=== PATIENT | female | born 1950 | race Caucasian/White ===

== ENCOUNTER 2020-05-26 13:43 | Emergency (ER) | payer MEDICARE, OTHER ==
[~2020-05-26] VITALS: Ht 149.8 cm; Wt 71.7 kg
[2020-05-26] MEDS ORDERED: NS IV 1000 ML 0 ML ONE (14:41)
[2020-05-26] MEDS ORDERED: ACETAMINOPHEN 500 MG TAB (TYLENOL) ONE (14:42)
--- NOTE | 2020-05-26 16:45 | NUR ---
Note chris in EDM - 05/26/20 at 1651 by SARA PT NOT IN ROOM. PT GOT UP ON HIS OWN AND WENT TO THE BATHROOM. ASSISTED PT BACK TO BED ET PULSE OX IN THE 'S. PT NOT WANTING TO LEAVE NON REBREATHER ON. DR TOMAS BROUGHT INTO ROOM.
[2020-05-26] MEDS ORDERED: LACTATED RINGERS 1,000 ML IV ONE (17:28)
[2020-05-26 17:34] LABS: BASOPHILS % (AUTO) 0 % (0-10); EOSINOPHILS # (AUTO) 0.1 10^3/uL (0.0-0.3); EOSINOPHILS % (AUTO) 0 % (0-10); HEMATOCRIT 43 % (35-52); LYMPHOCYTES # (AUTO) 1.3 10^3/uL (1.0-4.0); LYMPHOCYTES % (AUTO) 10 % (12-44); MEAN CORPUSCULAR HEMOGLOBIN 31 pg (25-34); MEAN CORPUSCULAR HGB CONC 33 g/dL (32-36); MEAN CORPUSCULAR VOLUME 93 fL (80-99); MEAN PLATELET VOLUME 10.6 fL (9.0-12.2); MONOCYTES # (AUTO) 0.4 10^3/uL (0.0-1.0); MONOCYTES % (AUTO) 3 % (0-12); NEUTROPHILS # (AUTO) 10.9 10^3/uL (1.8-7.8); NEUTROPHILS % (AUTO) 86 % (42-75); PLATELET COUNT 322 10^3/uL (130-400); WHITE BLOOD COUNT 12.7 10^3/uL (4.3-11.0)
[2020-05-26 17:40] LABS: ALBUMIN 4.1 GM/DL (3.2-4.5); CHLORIDE 109 MMOL/L (98-107); POTASSIUM 3.8 MMOL/L (3.6-5.0); SODIUM 140 MMOL/L (135-145)
[2020-05-26 17:42] LABS: CALCIUM 8.3 MG/DL (8.5-10.1)
[2020-05-26 17:43] LABS: GLUCOSE 104 MG/DL (70-105); TOTAL PROTEIN 6.6 GM/DL (6.4-8.2)
[2020-05-26 17:44] LABS: CARBON DIOXIDE 20 MMOL/L (21-32)
[2020-05-26 17:45] LABS: BILIRUBIN,TOTAL 0.6 MG/DL (0.1-1.0)
[2020-05-26 17:46] LABS: ALKALINE PHOSPHATASE 54 U/L (40-136)
[2020-05-26 17:47] LABS: CREATININE SERUM 0.71 MG/DL (0.60-1.30); GFR ESTIMATED > 60
[2020-05-26 17:48] LABS: BUN/CREATININE RATIO 23
[2020-05-26 17:49] LABS: ALANINE AMINOTRANSFERASE 31 U/L (0-55)
--- NOTE | 2020-05-26 18:15 | ED General ---
General Chief Complaint: Cough/Cold/Flu Symptoms Stated Complaint: N/V,DIARRHEA,COUGH, LG FEVER Nursing Triage Note: PT REPORTS COUGH THAT STARTED ON THRUSDAY BUT HAS GOTTEN BETTER. PT REPORTS VOMITING SINCE 1000 AND UNABLE TO KEEP ANYTHING DOWN. PT REPORTS DIARRHEA, CHILS, AND BEING DIZZY. PT DENIES BODY ACHES OR HEADACHES. PT ARRIVED LAST NIGHT VIA PLANE FROM [place] WHERE SHE LIVES. PT IS HERE VISITING DAUGHTER. Nursing Sepsis Screen: No Definite Risk Source of Information: Patient Exam Limitations: No Limitations History of Present Illness Date Seen by Provider: May 26, 2020 Time Seen by Provider: 17:20 Initial Comments Here with report of rather significant nausea and vomiting today starting at 10 AM. She was very dizzy and felt chills and body aches. She traveled from [place] to here yesterday via flight through [place]. Here to stay with her daughter who is a nurse in our facility. Denies upper respiratory symptoms but daughter reports that she has had a mild cough. States that she has not felt like this before except for when she had the flu. Denies chest pain or breathing problems. Does report that she feels weak but overall feels better this afternoon. Timing/Duration: 12-24 Hours Severity: Moderate Associated Systoms: Cough, Fever/Chills, Nausea/Vomiting; No Shortness of Air; Weakness Allergies and Home Medications Allergies Coded Allergies: hydrocodone (Unverified Allergy, Mild, Vomiting, 05/26/20) HTN Patient Home Medication List Home Medication List Reviewed: Yes Review of Systems Review of Systems Constitutional: see HPI, chills; No diaphoresis EENTM: no symptoms reported Respiratory: cough; No short of breath Cardiovascular: no symptoms reported Gastrointestinal: No abdominal pain; diarrhea, nausea, vomiting Genitourinary: no symptoms reported Musculoskeletal: No back pain, No neck pain Skin: no symptoms reported Psychiatric/Neurological: No Symptoms Reported All Other Systems Reviewed Negative Unless Noted: Yes Past Hekhzsk-Gasmuc-Kejzmn Hx Past Med/Social Hx: Reviewed Nursing Past Med/Soc Hx Patient Social History Alcohol Use: Rarely Uses Alcohol Beverage of Choice: Beer Recreational Drug Use: No Smoking Status: Never a Smoker Recent Foreign Travel: No Contact w/Someone Who Travel: No Recent Infectious Disease Expo: No Recent Hopitalizations: No Physical Abuse: No Sexual Abuse: No Mistreated: No Seasonal Allergies Seasonal Allergies: No Past Medical History Surgeries: Yes Bladder Surgery, Hysterectomy, Orthopedic Respiratory: No Neurological: No 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 oz. kg; 31.00 BMI Method: General Appearance: No Apparent Distress, WD/WN HEENT: PERRL/EOMI, Pharynx Normal Neck: Non Tender, Supple Respiratory: Lungs Clear, Normal Breath Sounds Cardiovascular: Regular Rate, Rhythm, No Murmur Gastrointestinal: Non Tender, Soft Back: Normal Inspection, No CVA Tenderness, No Vertebral Tenderness Extremity: Normal Range of Motion, Non Tender Neurologic/Psychiatric: Alert, Oriented x3 Skin: Normal Color, Warm/Dry Progress/Results/Core Measures Suspected Sepsis Recent Fever Within 48 Hours: No Infection Criteria Present: Suspected New Infection New/Unexplained Altered Menta: No Sepsis Screen: No Definite Risk SIRS Temperature: Pulse: 66 Respiratory Rate: 14 Laboratory Tests 05/26/20 17:13: White Blood Count 12.7H Blood Pressure 153 /67 Mean: 95 Laboratory Tests 05/26/20 17:13: Creatinine 0.71, Platelet Count 322, Total Bilirubin 0.6 Results/Orders Lab Results Laboratory Tests Test 05/26/20 17:13 05/26/20 17:21 05/26/20 18:20 Range/Units White Blood Count 12.7 H 4.3-11.0 10^3/uL Red Blood Count 4.58 3.80-5.11 10^6/uL Hemoglobin 14.0 11.5-16.0 g/dL Hematocrit 43 35-52 % Mean Corpuscular Volume 93 80-99 fL Mean Corpuscular Hemoglobin 31 25-34 pg Mean Corpuscular Hemoglobin Concent 33 32-36 g/dL Red Cell Distribution Width 13.3 10.0-14.5 % Platelet Count 322 130-400 10^3/uL Mean Platelet Volume 10.6 9.0-12.2 fL Immature Granulocyte % (Auto) 0 % Neutrophils (%) (Auto) 86 H 42-75 % Lymphocytes (%) (Auto) 10 L 12-44 % Monocytes (%) (Auto) 3 0-12 % Eosinophils (%) (Auto) 0 0-10 % Basophils (%) (Auto) 0 0-10 % Neutrophils # (Auto) 10.9 H 1.8-7.8 10^3/uL Lymphocytes # (Auto) 1.3 1.0-4.0 10^3/uL Monocytes # (Auto) 0.4 0.0-1.0 10^3/uL Eosinophils # (Auto) 0.1 0.0-0.3 10^3/uL Basophils # (Auto) 0.0 0.0-0.1 10^3/uL Immature Granulocyte # (Auto) 0.0 0.0-0.1 10^3/uL Sodium Level 140 135-145 MMOL/L Potassium Level 3.8 3.6-5.0 MMOL/L Chloride Level 109 H 98-107 MMOL/L Carbon Dioxide Level 20 L 21-32 MMOL/L Anion Gap 11 5-14 MMOL/L Blood Urea Nitrogen 16 7-18 MG/DL Creatinine 0.71 0.60-1.30 MG/DL Estimat Glomerular Filtration Rate > 60 BUN/Creatinine Ratio 23 Glucose Level 104 70-105 MG/DL Calcium Level 8.3 L 8.5-10.1 MG/DL Corrected Calcium 8.2 L 8.5-10.1 MG/DL Total Bilirubin 0.6 0.1-1.0 MG/DL Aspartate Amino Transf (AST/SGOT) 24 5-34 U/L Alanine Aminotransferase (ALT/SGPT) 31 0-55 U/L Alkaline Phosphatase 54 40-136 U/L C-Reactive Protein High Sensitivity 0.10 0.00-0.50 MG/DL Total Protein 6.6 6.4-8.2 GM/DL Albumin 4.1 3.2-4.5 GM/DL Urine Color YELLOW Urine Clarity CLEAR Urine pH 5.5 5-9 Urine Specific [place] 1.020 1.016-1.022 Urine Protein NEGATIVE NEGATIVE Urine Glucose (UA) NEGATIVE NEGATIVE Urine Ketones NEGATIVE NEGATIVE Urine Nitrite NEGATIVE NEGATIVE Urine Bilirubin NEGATIVE NEGATIVE Urine Urobilinogen 0.2 < = 1.0 MG/DL Urine Leukocyte Esterase NEGATIVE NEGATIVE Urine RBC (Auto) NEGATIVE NEGATIVE Urine RBC NONE /HPF Urine WBC NONE /HPF Urine Squamous Epithelial Cells 2-5 /HPF Urine Crystals NONE /LPF Urine Bacteria NEGATIVE /HPF Urine Casts NONE /LPF Urine Mucus NEGATIVE /LPF Urine Culture Indicated NO Micro Results Microbiology 05/26/20 Influenza Types A,B Antigen ([facility]ER[facility]) - Final, Complete My Orders Orders - DOUG TOMAS MD Iv 1000 Ml (Sodium Chloride 0.9%) (05/26/20 14:41) Acetaminophen Tablet (Tylenol Tablet) (05/26/20 14:42) Ed Iv/Invasive Line Start (05/26/20 17:28) Lactated Ringers (Lr 1000 Ml Iv Solution (05/26/20 17:28) Cbc With Automated Diff (05/26/20 17:28) Comprehensive Metabolic Panel (05/26/20 17:28) Hs C Reactive Protein (05/26/20 17:28) Ua Culture If Indicated (05/26/20 17:28) Coronavirus Sars-Cov-2 So 2018 (05/26/20 17:42) Influenza A And B Antigens (05/26/20 17:46) Medications Given in ED Current Medications Medications Dose Ordered Sig/Ovi Route Start Time Stop Time Status Last Admin Dose Admin Lactated Ringer's 1,000 ml @ 0 mls/hr Q0M ONCE IV 05/26/20 17:28 05/26/20 17:29 DC 05/26/20 17:40 999 MLS/HR Vital Signs/I&O 05/26/20 05/26/20 15:45 15:45 Temp 36.6 Pulse 66 Resp 14 B/P (MAP) 153/67 (95) Pulse Ox 96 O2 Delivery Room Air Room Air Capillary Refill : Less Than 3 Seconds Blood Pressure Mean: 95 Progress Note : Progress Note Seen and evaluated. IV, labs, UA, COVID-19 screening, influenza screening and LR 1 L bolus ordered. Monitor patient. 07/12/2001: Patient still feeling a little better. Influenza B positive. UA negative. We will initiate outpatient Tamiflu and prescription sent. Findings discussed with patient and family. Discharged home with return precautions. Patient and family verbalized understanding of instructions and agreement with plan. Departure Impression Primary Impression: Influenza B Additional Impression: Person under investigation for COVID-19 Disposition: 01 HOME, SELF-CARE Condition: Stable Departure-Patient Inst. Decision time for Depature: 19:03 Referrals: NO,LOCAL PHYSICIAN (PCP/Family) Primary Care Physician Patient Instructions: Coronavirus Disease 2019 (COVID-19) (DC), Flu, Adult (DC) Add. Discharge Instructions: All discharge instructions reviewed with patient and/or family. Voiced understanding. Take medications as directed. Follow-up with your doctor in a few days for rec heck. Drink plenty of fluids and get plenty of rest. You will need to remain isolated until test results are noted. If they are negative, you will need remain isolated for 3 days after symptoms resolve. If they are positive, the health department will call you and direct quarantine/isolation timeframe. You may take ibuprofen 600 mg every 8 hours as needed for fever or pain. You may take Tylenol/acetaminophen 1000 mg every 8 hours as needed for fever or pain. Return for worse pain, fever, vomiting, weakness, breathing problems or other concerns as needed. Scripts Oseltamivir Phosphate (Oseltamivir Phosphate) 75 Mg Capsule 75 MG PO BID for 5 Days, #10 CAP 0 Refills Prov: DOUG TOMAS MD 05/26/20 Ondansetron (Ondansetron Odt) 4 Mg Tab.rapdis 4 MG PO Q6H PRN for NAUSEA/VOMITING, #12 TAB 0 Refills Prov: DOUG TOMAS MD 05/26/20 DOUG TOMAS MD May 26, 2020 18:15
[2020-05-26 18:30] LABS: BILIRUBIN,URINE NEGATIVE (NEGATIVE); CLARITY,URINE CLEAR; COLOR,URINE YELLOW; GLUCOSE, URINE (UA) NEGATIVE (NEGATIVE); KETONES,URINE NEGATIVE (NEGATIVE); LEUKOCYTE ESTERASE ,URINE NEGATIVE (NEGATIVE); NITRITE,URINE NEGATIVE (NEGATIVE); PH,URINE 5.5 (5-9); PROTEIN,URINE NEGATIVE (NEGATIVE)
[2020-05-26 18:38] LABS: BACTERIA,URINE NEGATIVE /HPF
[2020-05-26] MEDS ORDERED: OSEL75CA15 PO ×2 (19:05→19:26)
[2020-05-26] MEDS ORDERED: ONDA4TAB11 PO ×2 (19:05→19:26)
[2020-05-26 19:29] VITALS: BP 129/85
== END 2020-05-26 19:29 | disposition home or self-care (01) ==
LOC: ER 13:46
DX: J10.1 Influenza due to other identified influenza virus with other respiratory manifestations (principal); Z20.828 Contact with and (suspected) exposure to other viral communicable diseases; Z88.5 Allergy status to narcotic agent
CPT/HCPCS: 80053; 81000; 85025; 86141; 87804; 99283; U0002; 36415; 87635

== ENCOUNTER → 2022-05-18 | Outpatient (CLI) | payer MEDICARE, OTHER ==
[~2022-05-18] MED LIST: ONDA4TAB11 PO; OSEL75CA15 PO
== END ==
LOC: RAD 12:09
PROVIDERS: ATTEND Internal Medicine
DX: Z12.31 Encounter for screening mammogram for malignant neoplasm of breast (principal)
CPT/HCPCS: 77063; 77067

== ENCOUNTER → 2022-12-13 | Outpatient (CLI) | payer MEDICARE ==
--- NOTE | 2022-12-13 16:07 | Diagnostic Imaging Report ---
INDICATION: LT ANKLE PAIN COMPARISON: None. FINDINGS: 3 views of the left ankle were obtained. There is no acute fracture or dislocation. No focal osseous lesions are seen. There is moderate lateral soft tissue swelling. There are no radiopaque foreign bodies. IMPRESSION: 1. Moderate lateral soft tissue swelling, but no radiographic evidence of acute fracture or dislocation of the left ankle. Dictated by: Dictated on workstation # [id number]
== END ==
LOC: RAD 15:15
PROVIDERS: ATTEND Internal Medicine
DX: M25.572 Pain in left ankle and joints of left foot (principal); M79.89 Other specified soft tissue disorders
CPT/HCPCS: 73610

== ENCOUNTER → 2022-12-16 | Outpatient (CLI) | payer MEDICARE | LOC: ORTHO 11:40 | PROVIDERS: ATTEND Orthopaedic Surgery | DX: M25.572 Pain in left ankle and joints of left foot (principal) | CPT/HCPCS: 99203 ==